=== PATIENT | female | born 1970 | race Caucasian/White ===

== ENCOUNTER → 2018-12-28 | Outpatient (CLI) | payer BC ==
[~2018-12-28] MED LIST: IOPAMIDOL (ISOVUE-300) 100 ML BTL ONE
== END ==
LOC: CIMAGING 08:40
PROVIDERS: ATTEND Internal Medicine
DX: R07.9 Chest pain, unspecified (principal)
CPT/HCPCS: 71260-PO; Q9967

== ENCOUNTER 2019-01-05 10:55 | Emergency (ER) | payer BC ==
[2019-01-05] MEDS ORDERED: NS 1,000 ML IV ONE (11:29)
[2019-01-05] MEDS ORDERED: HYDROmorphONE/DILAUDID 2 MG/ML INJ IVP ONE (11:29)
[2019-01-05] MEDS ORDERED: methylPREDNISolone SOD SUCC 125 MG/2 ML VIAL IVP ONE (11:29)
[2019-01-05] MEDS ORDERED: KETOROLAC 30 MG/1 ML SDV IVP ONE (11:29)
--- NOTE | 2019-01-05 11:41 | EDPHY ---
General Time Seen by Provider: 01/05/19 11:35 Narrative: CLINICAL IMPRESSION: Neck pain with radiculopathy ASSESSMENT/PLAN: Patient is a 48-year-old female with no significant medical history who presents to the emergency department with left-sided neck pain with radiation into her left arm as well as subjective left pinky paresthesia. Patient is afebrile, she is uncomfortable appearing however not toxic-appearing. HSNE intact with no significant red flags. Cervical spinal x-ray revealed degenerative disc disease at the level of C5-C6. History and physical examination today is consistent with neck pain with radiculopathy. She had no saddle paresthesias, lower extremity numbness, tingling, major motor weakness, urinary retention or bowel/bladder incontinence. No indication for emergent MRI. There were no clinical findings to suggest vertebral osteomyelitis, acute fracture, cauda equina syndrome, epidural abscess/hematoma, epidural compression syndrome, dissection, meningitis , malignancy, transverse myelitis, herpes zoster or additional emergent process. Patient was given Solu-Medrol, Toradol and Dilaudid in the ED with improvement of her pain. She is well established with her PCP and will call to schedule a follow-up appointment. I have also given her referral to Neurosurgery. She understands that she may need additional imaging to include MRI and possible physical therapy. On repeat examination prior to discharge the patient reports that she is feeling much better, a marked improvement in her pain. Her neurological exam remained grossly normal with no focal deficit. She will continue Medrol Dosepak, anti-inflammatories and [place] as needed for more severe pain. Strict return precautions discussed- she will return for increased or unmanageable pain, new injury, new midline back pain, numbness, tingling, weakness of legs, loss of bowel or bladder control, saddle paresthesia , urinary retention, loss of bowel or bladder control, difficulty walking or for any other new, worsening or worrisome symptoms. Patient verbalizes understanding and she is in agreement with plan. ED COURSE: 1130: Discussed with Dr. Haq 1225: On repeat exam the patient is much more comfortable appearing however is complaining of nausea. She reports that her pain has improved. 1350: On repeat exam the patient denies any pain whatsoever, she is still experiencing some low-grade nausea. Her neurological exam remained grossly normal with no focal deficit. CHIEF COMPLAINT: Left-sided neck pain with radiation into her left arm, pinky paresthesia HPI: Patient is a 48-year-old female no significant medical history who presents to the emergency department with left-sided neck pain with radiation into her shoulder and upper arm as well as left pinky decreased sensation. Patient reports approximately a week ago she started to experience some left-sided neck pain that has progressively become more constant and worsened in intensity. It is radiating into her left shoulder and she is now experiencing some decreased sensation on the lateral aspect of her left pinky. Patient denies ever experiencing anything like this before, she has had no recent trauma. Patient denies saddle paresthesias, lower extremity numbness, tingling, major motor weakness, urinary retention or bowel/bladder incontinence. She has been taking Advil, last dose at 3:00 a.m. This morning without much relief. She reports an increased exacerbation last evening, was unable to sleep secondary to pain. Patient endorses recent workup with her primary care provider for ongoing chest tightness with normal EKG and negative chest CT. She denies any chest pain, shortness of breath or chest tightness in the emergency department today. She has had no fever, no recent spinal procedures and no history of IV drug use. She denies any abdominal pain or urinary symptoms to include dysuria, hematuria or increased frequency. Bowel movements have been regular. PMH: Denies Pertinent Past Surgical History: Denies Family History: Noncontributory Social History: Denies smoking, occasional alcohol, denies drug use REVIEW OF SYSTEMS: All other systems negative Constitutional: No fever, no chills, appetite change. Eyes: No discharge, vision change ENT: No sore throat, congestion, ear pain. Cardiovascular: No chest pain, no palpitations. Respiratory: No cough, no shortness of breath. Gastrointestinal: No abdominal pain, no vomiting, diarrhea. Genitourinary: No hematuria, dysuria, flank pain, pelvic pain. Musculoskeletal: Neck pain into shoulder. No back pain, joint swelling, joint pain, myalgias. Skin: No rashes, color change. Neurological: No headache, dizziness, weakness. PHYSICAL EXAM: General Appearance: Well-developed, uncomfortable appearing however not toxic- appearing. HENT: Normocephalic, atraumatic. Bilateral external ears are normal. Bilateral tympanic membranes are normal with pearly martínez reflex. Nares are clear, mucosa is pink. Oropharynx is clear, uvula is midline. There is no tonsillar enlargement or exudate. The dentition is normal. Eyes: PERRLA, no acute vision change, nystagmus, swelling, discharge, pain or photosensitivity. Conjunctiva pink, no pallor or injection Neck: Supple, no lymphadenopathy, no midline pain. Patient with left-sided neck pain with radiation into her trap and deltoid. She has no midline tenderness to palpation, there is no step-off or deformity. Limited range of motion when looking to the left secondary to pain. Back: No step-off, palpable bony abnormality, edema, erythema or ecchymosis of the cervical, thoracic or lumbar spines. No tenderness to palpation of the thoracic or lumbar spines. Full range of motion of the thoracic and lumbar spines. 5/5 and equal strength of the UEs and LEs bilaterally including shoulder shrug. Pulses: 2+ and equal radial, DP and PT pulses bilaterally. Sensation intact and symmetric to light touch from face, UEs and LEs bilaterally. Straight leg raise negative bilaterally. NON-traumatic Back Pain Pathway Low/medium concern for Acute Spinal Emergency (ASE) High Sensitivity Neuro Exam (HSNE) Cervical pain C1-4: sensation back of head/neck- no deficit C5: Deltoid (motor)- no deficit C6: Biceps (motor)- no deficit C7: Extend wrist/fingers- no deficit C8: Flex fingers- no deficit HSNE- no deficit Red flags: MINOR (1 pt each) Alcohol abuse- 0 DM - 0 Renal failure- 0 Night pain- 1 3rd visit in <= 20 days 0 MAJOR (3 pts each) IVDA - 0 Fever without focus - 0 Recent/current systemic infection - 0 Immunosuppression (physician discretion) - 0 Recent spinal fracture/spinal procedure (ESR is not a good screen for spinal epidural hematoma) - 0 New bladder/bowel incontinence or retention - 0 Total Red Flag score - 1 Total Red Flag score <= 3 AND neuro exam is at baseline ---> no MRI is recommended Respiratory: There are no retractions, lungs are clear to auscultation. Cardiac: Regular rate and rhythm, no murmurs or gallops. Gastrointestinal: Abdomen is soft, nontender, bowel sounds normal, no masses/ hernia, no rigidity, guarding or focal peritoneal findings. Neurological: Alert and oriented x 3, CN 2-12 grossly intact, normal gait no ataxia, DTR's intact, normal sensation and strength Skin: Warm, dry, no rashes, no nodules on palpation. Musculoskeletal: Extremities are symmetrical, full range of motion, no tenderness, deformity, swelling, or erythema. Psychiatric: Patient is oriented X 3, there is no agitation. MEDICAL DECISION MAKING: Patient was seen independently. Secondary supervising physician at time of evaluation was Dr. Haq, he did not evaluate this patient. Diagnosis: Neck pain with radiculopathy. New, requires workup Summary: See Assessment and Plan for summary of ED visit Clinical lab tests: Not applicable. Independent visualization of images, tracing, or specimens: Yes. Decision to obtain medical records or history from someone other than the patient: Yes, Review / Summarize previous medical records: Yes Discussed patient with another provider: Yes, Dr. Haq Patient Progress: Stable, discharged. - Diagnostics Imaging Results: Imaging Impressions Cervical Spine X-Ray 01/05/19 11:41 Impression:C5-C6 degenerative disk disease. - History Smoking Status: Never smoked - Objective Vital Signs: Initial Vital Signs Temperature (C) 37 C 01/05/19 10:58 Heart Rate 91 01/05/19 10:58 Blood Pressure 116/70 01/05/19 10:58 O2 Sat (%) 96 01/05/19 10:58 O2 Delivery Mode Nasal Cannula Allergies/Adverse Reactions: No Known Allergies Allergy (Unverified 01/05/19 11:01) Home Medications: Medication Instructions Recorded Hydrocodone/APAP 5/325 [[place] 1 - 2 tab PO Q4H PRN #10 tab 01/05/19 5/325 (*)] Ondansetron Odt [Zofran Odt] 4 mg PO Q8 #5 tab 01/05/19 methylPREDNISolone [Medrol Dose 1 each PO AD #1 ea 01/05/19 Andrea] Medications Given: Discontinued Medications Hydromorphone HCl (Dilaudid) 0.5 mg IVP EDNOW ONE Stop: 01/05/19 11:30 Last Admin: 01/05/19 11:52 Dose: 0.5 mg Sodium Chloride (Ns) 1,000 mls @ 0 mls/hr IV ONCE ONE PRN Reason: Wide Open Stop: 01/05/19 11:30 Last Admin: 01/05/19 11:52 Dose: 1,000 mls Ketorolac Tromethamine (Toradol) 30 mg IVP EDNOW ONE Stop: 01/05/19 11:30 Last Admin: 01/05/19 11:51 Dose: 30 mg Methylprednisolone Sodium Succinate (Solu-Medrol) 125 mg IVP EDNOW ONE Stop: 01/05/19 11:30 Last Admin: 01/05/19 11:51 Dose: 125 mg Ondansetron HCl (Zofran) 4 mg IVP EDNOW ONE Stop: 01/05/19 12:32 Last Admin: 01/05/19 12:32 Dose: 4 mg Ondansetron HCl (Zofran Odt) 4 mg PO EDNOW ONE Stop: 01/05/19 13:14 Last Admin: 01/05/19 13:14 Dose: 4 mg Departure - Departure Disposition: Home, Routine, Self-Care Clinical Impression: Neck pain, acute, Radicular pain Condition: Good Instructions: Acute Neck Pain (ED) Additional Instructions: DISCHARGE INSTRUCTIONS FROM YOUR DOCTOR Thank you for visiting our emergency department today. Please keep in mind that discharge from the emergency department does not mean that there is nothing wrong - it simply means that we have not identified an emergency condition that requires further evaluation or treatment in the hospital. You should always plan to follow up with primary care for re-evaluation of your condition in the next 2-3 days. Most back and neck pain improves quickly with rest and anti-inflammatory medicines. The majority of back and neck pain will improve regardless of treatment within 4-6 weeks. Regardless, I recommend you follow up with primary care for recheck as soon as possible. Additional evaluation as an outpatient may be needed including an MRI, and further therapeutic modalities such as chiropractic or PT may be helpful. Rest. Avoid lifting greater than 10-15 pounds. Avoid twisting or prolonged sitting. Movement and gentle walking is good for you. Try to walk for 15-10 minutes on an even surface 3 or 4 times a day as tolerated and increase gentle exercise as your back improves. Apply ice to your low back during acute pain phase, later a heating pad set to a low setting or hot tub may be helpful to help relax muscles. For pain control: You may take Tylenol, I recommend 500-1000 mg every 6-8 hours as needed. Take with food and a full glass of water. Stop taking if this is upsetting her stomach. Do not exceed 4000 mg in a 24 hr period. You may also take ibuprofen, recommend 400 mg every 6 hr. Take with food and a full glass of water. Stop taking if this upsets her stomach. Do not exceed 2400 mg in a 24 hr period. Do not take until 8 hr after being discharged from the emergency department as he received Toradol here. Zofran as needed for nausea. Medrol Dosepak, follow directions. [place] as prescribed as needed for severe pain. Caution - this may cause dizziness and/or drowsiness. Do not combine with alcohol or tylenol. Do not take if you will be driving or operating heavy machinery. Caution- this can be addictive. Caution - this can cause constipation. Schedule a follow-up appointment with your primary care physician in the next 2- 3 days for re-evaluation. You may require further treatment, physical therapy and/or further future testing. Return for increased or unmanageable pain, new injury, new midline back pain, numbness, tingling, weakness of your legs, loss of bowel or bladder control, inability to urinate, burning or pain with urination, blood in the urine, fever , chills, abdominal pain, vomiting, difficulty walking, dizziness, fainting, chest pain, shortness of breath, neck pain, neck stiffness, other site of back pain, calf pain, leg redness or swelling, or for any other new, worsening or worrisome symptoms. People present with illnesses and injuries in different ways, and it is always possible that we have missed something. You may always return for re-evaluation if symptoms worsen or if they are not improving or if you develop new/different symptoms. Again, thank you for choosing our emergency department. We hope that you feel better. Referrals: Dionna Hall MD [Primary Care Provider] - 2-3 days without fail Malachi Cloud MD [Medical Doctor] - As per Instructions (A referral for Neurosurgery as needed) Prescriptions: Hydrocodone/APAP 5/325 [[place] 5/325 (*)] 1 - 2 tab PO Q4H PRN #10 tab PRN Reason: Pain, Moderate methylPREDNISolone [Medrol Dose Andrea] 1 each PO AD #1 ea Ondansetron Odt [Zofran Odt] 4 mg PO Q8 #5 tab
[2019-01-05] MEDS ORDERED: ONDANSETRON 4 MG/2 ML VIAL IVP ONE (12:31)
[2019-01-05 13:07] VITALS: BP 122/83
[2019-01-05] MEDS ORDERED: ONDANSETRON 4 MG/2 ML VIAL IVP PRN (13:09)
[2019-01-05] MEDS ORDERED: ONDANSETRON DISINTEGRATING 4 MG TAB ONE (13:12)
[2019-01-05] MEDS ORDERED: ONDANSETRON DISINTEGRATING 4 MG TAB PO ONE (13:13)
== END 2019-01-05 14:29 | disposition home or self-care (01) ==
DX: M54.12 Radiculopathy, cervical region (principal); E86.9 Volume depletion, unspecified
CPT/HCPCS: 96374; J1170; J1885; J2405; J2930